=== PATIENT | female | born 1945 | race Caucasian/White ===

== ENCOUNTER → 2017-07-05 | Outpatient (CLI) | payer MEDICARE, BC | LOC: MC.RAD 10:30 | DX: Z12.31 Encounter for screening mammogram for malignant neoplasm of breast (principal) ==

== ENCOUNTER 2018-07-13 12:01 | Emergency (ER) | payer MEDICARE, BC ==
[~2018-07-13] VITALS: Ht 167.6 cm; Wt 61.4 kg
[2018-07-13 12:05] VITALS: TEMP 98.1
[2018-07-13 13:11] LABS: BASO % 0.3 % (0.0-2.0); GRAN # 11.7 (1.4-6.5); GRAN % 89.1 % (42.2-75.2); HEMATOCRIT 39.3 % (37.0-47.0); HEMOGLOBIN 12.8 g/dl (12.5-16.0); LYMPH # 0.9 (1.2-3.4); LYMPH % 6.5 % (20.0-51.0); MEAN CELL VOLUME 98 fl (80.0-100.0); MEAN CORPUSCULAR HEMOGLOBIN 32 pg (27.0-31.0); MEAN CORPUSCULAR HGB CONC 33 g/dl (33.0-37.0); MEAN PLATELET VOLUME 10.4 fl (7.4-10.4); MONO # 0.5 (0.1-0.6); MONO % 3.9 % (1.7-9.3); PLATELET COUNT 360 K/mm3 (130-400); REDCELL DISTRIBUTION WIDTH-CV 13.8 % (11.5-14.5)
[2018-07-13 13:20] LABS: ALANINE AMINOTRANSFERASE 29 U/L (9-52); ALBUMIN 3.7 gm/dL (3.5-5.0); ALKALINE PHOSPHATASE 58 U/L (50-136); ANION GAP 4 mmol/L (7-16); AST,SGOT 19 U/L (15-37); BILIRUBIN,TOTAL 0.3 mg/dL (0.0-1.0); BLOOD UREA NITROGEN 19 mg/dL (7-17); CALCIUM 9.1 mg/dL (8.4-10.2); CARBON DIOXIDE 32 mmol/L (22-30); CHLORIDE 106 mmol/L (98-107); CREATININE, serum 0.52 mg/dL (0.52-1.25); GLUCOSE 122 mg/dL (74-106); POTASSIUM 3.4 mmol/L (3.4-5.0); SODIUM 142 mmol/L (137-145); TOTAL PROTEIN 6.6 gm/dL (6.4-8.2)
[2018-07-13 13:25] LABS: C-REACTIVE PROTEIN < 0.5 mg/dL (0.0-0.9)
[2018-07-13] MEDS ORDERED: PRINZIDE 12.5 M1 TAB PO (15:03)
[2018-07-13] MEDS ORDERED: TAZTIA240 PO (15:04)
[2018-07-13] MEDS ORDERED: APRISO0.375 GM PO (15:04)
[2018-07-13] MEDS ORDERED: PROAIR HFA0.09 MG/AC IH (15:05)
[2018-07-13] MEDS ORDERED: RT ADVAIR 228 DISKUS IH (15:05)
[2018-07-13] MEDS ORDERED: EVISTA 60MG60 MG/TAB PO (15:05)
[2018-07-13] MEDS ORDERED: CALCIUM CARBON650 M2 PO (15:06)
[2018-07-13 15:53] VITALS: BP 148/67; PULSE 97
[2018-07-13 16:09] LABS: COLLECTION METHOD CLEAN CATCH
[2018-07-13 16:21] LABS: MUCOUS Present /lpf; PH 5 (5-8); SQUAMOUS EPITHELIAL 0-2 /hpf; URINE APPEARANCE Clear; URINE BACTERIA None Seen /hpf; URINE BILIRUBIN Negative (NEGATIVE); URINE BLOOD Negative (NEGATIVE); URINE COLOR Yellow; URINE GLUCOSE Negative (NEGATIVE); URINE KETONE Negative (NEGATIVE); URINE LEUKOCYTE ESTERASE Negative (NEGATIVE); URINE NITRATE Negative (NEGATIVE); URINE PROTEIN(semi-quant) Negative (NEGATIVE); URINE RBC 0-2 /hpf; URINE UROBILINOGEN Negative (NEGATIVE)
== END 2018-07-13 16:46 | disposition home or self-care (01) ==
LOC: COL.ER 12:01
PROVIDERS: Family Medicine
DX: G93.9 Disorder of brain, unspecified (principal); R51 Headache; I48.91 Unspecified atrial fibrillation; I10 Essential (primary) hypertension; I25.10 Atherosclerotic heart disease of native coronary artery without angina pectoris
CPT/HCPCS: J0595; J1100; J2405; J2550; J7030; Q9967

== ENCOUNTER 2019-04-15 15:30 | Outpatient (RCR) | payer MEDICARE, BC ==
[~2019-04-15 15:30] MED LIST: APRISO0.375 GM PO; CALCIUM CARBON650 M2 PO; EVISTA 60MG60 MG/TAB PO; PRINZIDE 12.5 M1 TAB PO; PROAIR HFA0.09 MG/AC IH; RT ADVAIR 228 DISKUS IH; TAZTIA240 PO
== END 2019-04-16 10:21 | disposition home or self-care (01) ==
LOC: MKS.ESL.PT 15:30
DX: G93.89 Other specified disorders of brain (principal); Z98.890 Other specified postprocedural states

== ENCOUNTER → 2019-07-30 | Outpatient (CLI) | payer MEDICARE, BC | LOC: MC.RAD 10:39 | DX: Z12.31 Encounter for screening mammogram for malignant neoplasm of breast (principal) ==

== ENCOUNTER → 2020-07-31 | Outpatient (CLI) | payer MEDICARE, BC | LOC: MC.RAD 10:45 | DX: Z12.31 Encounter for screening mammogram for malignant neoplasm of breast (principal) ==

== ENCOUNTER → 2022-10-14 | Outpatient (CLI) | payer MEDICARE, BC | LOC: MC.RAD 13:11 | DX: Z12.31 Encounter for screening mammogram for malignant neoplasm of breast (principal) ==

== ENCOUNTER 2023-10-12 10:15 | Outpatient (RCR) | payer MEDICARE, BC | END 2023-10-19 | LOC: WSPT | DX: M54.2 Cervicalgia (principal) ==

== ENCOUNTER → 2023-11-13 | Outpatient (CLI) | payer MEDICARE, BC | LOC: MC.RAD 10:17 | DX: Z12.31 Encounter for screening mammogram for malignant neoplasm of breast (principal) ==

== ENCOUNTER 2023-11-15 13:00 | Outpatient (RCR) | payer MEDICARE, BC | END 2023-11-19 | LOC: WSPT | DX: M54.2 Cervicalgia (principal) ==